=== PATIENT | female | born 1930 | race Caucasian/White ===

== ENCOUNTER 2016-07-13 10:36 | Outpatient (CLI) | payer OTHER ==
--- NOTE | 2016-07-13 13:39 | DIAGNOSTIC IMAGING REPORT ---
PROCEDURE: MR LOWER EXT JOINT WO CONT-LT INDICATION: LT MEDIAL KNEE PAIN TECHNIQUE: PD axial, T1 and PD fat sat coronal, PD and PD fat sat sagittal, and sagittal oblique STIR sequence through the ACL. COMPARISON: None. FINDINGS: Menisci: Intermediate signal and irregularity involving the entire body of the medial meniscus and superior surface tearing along the posterior horn. There is medial extrusion of the body and anterior extrusion of the anterior horn. Degenerative signal involves the posterior root of the lateral meniscus which otherwise appears intact. Ligaments: Tearing of the deep medial collateral ligament fibers. Superficial fibers are intact. Diffuse intermediate signal throughout the expected location of the anterior cruciate ligament fibers. The few visible fibers demonstrate an abnormally shallow course. There is diffuse intermediate signal involving the genu and proximal portion of most of the fibers of the posterior cruciate ligament. The lateral collateral ligament complex is intact. There is intermediate signal at the origin of the popliteus tendon. The other posterolateral corner structures appear intact. Extensor mechanism: Intact retinacular fibers. Normal distal quadriceps and patellar tendons. Normal patellar position. Osseous structures and articular surfaces: Moderate tricompartment marginal spur formation. There is full-thickness cartilage loss over the weightbearing surface of the medial femoral condyle and the corresponding medial tibial plateau. There is very slight sclerosis and subchondral cystic change along the midportion of the medial tibial plateau. No fractures. Minor intraosseous edema at the expected origins of the posterior and anterior cruciate ligaments. Subcortical cystic change along the medial tibial spine. Mild chondral thinning in the patellofemoral compartment and lateral compartment. Fluid, soft tissues, and joint space: Moderate sized suprapatellar joint effusion. No plica or synovial thickening or loose joint body. Mild soft tissue edema is seen along the medial aspect of the tibial metaphysis deep to the superficial MCL fibers. Tiny amount of subcutaneous edema in the infrapatellar region. No bursal fluid collections or Mendoza's cyst. There is a tiny amount of joint fluid extending dorsal to the proximal tibiofibular articulation. IMPRESSION: 1. Extensive, degenerative appearing medial meniscal tear of the body with medial extrusion and disruption of the deep fibers of the MCL. 2. Tearing of the posterior horn of the medial meniscus and anterior extrusion of the anterior horn. 3. 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 4. Tricompartment osteoarthritic spurring. 5. Chronic-appearing high-grade partial thickness tearing of the anterior cruciate ligament and low grade partial thickness tearing of the posterior cruciate ligament. 5. Moderate sized joint effusion without evidence of loose body. 6. No fractures.
== END 2016-07-13 23:00 ==
LOC: MRI SRH 10:36
DX: S83.512A Sprain of anterior cruciate ligament of left knee, initial encounter (principal); S83.522A Sprain of posterior cruciate ligament of left knee, initial encounter; M23.222 Derangement of posterior horn of medial meniscus due to old tear or injury, left knee; M23.212 Derangement of anterior horn of medial meniscus due to old tear or injury, left knee; M25.462 Effusion, left knee